=== PATIENT | female | born 1995 | race African-American/Black ===

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

== ENCOUNTER 2017-01-09 17:41 | Emergency (ER) | payer MEDICAID ==
[~2017-01-09] VITALS: Ht 160 cm; Wt 69.0 kg
[2017-01-09 17:46] VITALS: BP 119/74; PULSE 69; RESP 16; TEMP 98.8; O2SAT 100
--- NOTE | 2017-01-09 17:56 | PD ---
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 The patient was seen in the emergency department on December 31 for vaginal discharge and had a pelvic examination which included a wet prep and gonorrhea/ chlamydia. Patient's wet prep was negative and the patient was discharged home. However, the patient's PCR grew positive for gonorrhea and the patient was called back for treatment. She does complain of intermittent white vaginal discharge as well as mild lower pelvic discomfort. Last menstrual cycle was December 26, 2016, she denies . The patient has an IUD in place. The patient denies any nausea, vomiting, or upper abdominal pain. Symptoms are moderate, no exacerbating or alleviating factors. PFSH Past Medical History Medical History: Denies Significant Hx ?: Not Past Surgical History Surgical History: No Previous Surgery Social History Alcohol Use: No Tobacco Use: No Substance Use: No Allergies-Medications (Allergen,Severity, Reaction): Coded Allergies: No Known Allergies (Unverified , 01/09/17) Reported Meds & Prescriptions Reported Meds & Active Scripts Active No Active Prescriptions or Reported Medications Review of Systems General / Constitutional: No: Fever Gastrointestinal: No: Nausea, Vomiting, Abdominal Pain Genitourinary: Positive: Pelvic Pain, Discharge, No: Dysuria Musculoskeletal: No: Myalgias, Arthralgias Skin: No Rash Physical Exam Narrative GENERAL: Awake, alert, very pleasant 21-year-old female who appears her stated age and is in no acute respiratory distress. SKIN: Focused skin assessment warm/dry. HEAD: Atraumatic. Normocephalic. EYES: No injection or drainage. GASTROINTESTINAL: Abdomen soft, non-tender, nondistended. Minimal suprapubic tenderness. Back: No CVA tenderness. MUSCULOSKELETAL: No obvious deformities. No clubbing. No cyanosis. No edema. NEUROLOGICAL: Awake and alert. No obvious cranial nerve deficits. Motor grossly within normal limits. Normal speech. PSYCHIATRIC: Appropriate mood and affect; insight and judgment normal. Data Data Last Documented VS Vital Signs Date Time Temp Pulse Resp B/P (MAP) Pulse Ox O2 Delivery O2 Flow Rate FiO2 01/09/17 17:46 98.8 69 16 119/74 (89) 100 Orders Orders Azithromycin Powd Pack (Zithromax Powd P (01/09/17 18:00) Ceftriaxone Inj (Rocephin Inj) (01/09/17 18:00) Lidocaine 1% Inj (50 Ml) (Xylocaine 1% I (01/09/17 18:00) MDM Medical Decision Making Medical Screen Exam Complete: Yes Emergency Medical Condition: Yes Medical Record Reviewed: Yes Differential Diagnosis Differential diagnosis includes gonorrhea, Chlamydia, cervicitis, PID, vaginitis , UTI, . Narrative Course I reviewed the EMR from December 31, 2016. Wet prep was negative, bedside urine test was negative, however, patient was positive PCR for gonorrhea. Therefore the patient received Rocephin 250 mg IM and Zithromax 1 g by mouth. She is advised to tell her sexual partner of her positive results so they can be treated as well. She is advised to use condoms as needed and a follow-up with a primary physician. Return if symptoms worsen or progress. Diagnosis Primary Impression: Gonorrhea Patient Instructions: General Instructions Additional Instructions: Follow-up with the [facility] as needed for syphilis and HIV testing. Discussed positive findings with your sexual partner. Return if symptoms worsen or progress. Med/Other Pt SpecificInfo: No Change to Meds Scripts No Active Prescriptions or Reported Meds Disposition: 01 DISCHARGE HOME Condition: Stable Sandeep Carver MD Jan 09, 2017 17:56
[2017-01-09] MEDS ORDERED: cefTRIAXone 250 MG VIAL IM ONE (18:00)
[2017-01-09] MEDS ORDERED: AZITHROMYCIN PWD FOR SUSP 1 GM PACKET PO ONE (18:00)
[2017-01-09] MEDS ORDERED: LIDOCAINE HCL 1% 50 ML VIAL IM ONE (18:00)
== END 2017-01-09 18:34 | disposition home or self-care (01) ==
LOC: PHED 17:41
DX: A54.9 Gonococcal infection, unspecified (principal)
CPT/HCPCS: 96372; 99284; J0696